=== PATIENT | female | born 1990 | race Caucasian/White ===

== ENCOUNTER 2019-08-25 10:52 | Emergency (ER) | payer MEDICAID ==
[~2019-08-25] VITALS: Ht 170.2 cm; Wt 97.5 kg
[2019-08-25 10:52] VITALS: BP_SYST 134
--- NOTE | 2019-08-25 10:52 | NUR ---
BROUGHT BACK TO BED #7 AND TRIAGED. REPORT GIVEN TO RICH
--- NOTE | 2019-08-25 11:28 | NUR ---
DR BREAUX AT BEDSIDE FOR EVALUATION
--- NOTE | 2019-08-25 11:35 | NUR ---
RN has introduced himself and obtained information from the pt. pt has some right great toe redness and pain. pt use clippers to cut the lateral corner of the great toenail substantially because pt believed that she had ingrown toenail. the pain persisted so she came to the ER.
--- NOTE | 2019-08-25 11:37 | NUR ---
Patient given written and verbal discharge instructions and verbalizes understanding. ER MD discussed with patient the results and treatment provided. Patient in stable condition. ID arm band removed. Rx of Keflex and naprosyn given. Patient educated on pain management and to follow up with PMD. Pain Scale 2/10. Opportunity for questions provided and answered. Medication side effect fact sheet provided.
[2019-08-25 11:39] VITALS: BP_SYST 134
== END 2019-08-25 11:37 | disposition home or self-care (01) ==
LOC: SED 10:52
DX: L03.031 Cellulitis of right toe (principal)
CPT/HCPCS: 99283